=== PATIENT | female | born 1940 | race Caucasian/White ===

== ENCOUNTER 2017-11-29 11:41 | Emergency (ER) | payer OTHER ==
[~2017-11-29] VITALS: Ht 170.2 cm; Wt 68.0 kg
[2017-11-29 11:44] VITALS: BP 129/75
[2017-11-29] MEDS ORDERED: ibuprofen 200mg tablet PO ONE (12:40)
== END 2017-11-29 13:59 | disposition home or self-care (01) ==
LOC: ER 11:42
DX: M79.672 Pain in left foot (principal); Z88.1 Allergy status to other antibiotic agents; W20.8XXA Other cause of strike by thrown, projected or falling object, initial encounter; Y93.89 Activity, other specified; Y92.89 Other specified places as the place of occurrence of the external cause; Y99.8 Other external cause status
CPT/HCPCS: 73630; 99284; L3260